=== PATIENT | male | born 1970 ===

== ENCOUNTER 2018-06-25 10:49 | Emergency (ER) | payer SELFPAY ==
[2018-06-25 10:51] VITALS: BMI 26.6
[2018-06-25 10:52] VITALS: O2SAT 98
--- NOTE | 2018-06-25 11:49 | ED PDOC ---
HPI: Back Time Seen by Provider: 06/25/18 11:24 Chief Complaint (Nursing): Back Pain History Per: Patient Onset/Duration Of Symptoms: Days (2) Current Symptoms Are (Timing): Still Present Quality Of Discomfort: Aching Severity: Moderate Previous Symptoms: Back Pain Exacerbating Factor(s): Movement Additional Complaint(s): Low back pain R>L radiating to back of right leg x 2 days. Occurred after bending down to tie his shoes. Denies weakness or parasthesias. denies urinary sxs or fever. Past Medical History Vital Signs: Last Vital Signs Temp 98.5 F 06/25/18 10:51 Pulse 63 06/25/18 10:51 Resp 18 06/25/18 10:51 BP 131/79 06/25/18 10:51 Pulse Ox 98 06/25/18 10:51 - Medical History PMH: No Chronic Diseases - Family History Family History: States: Unknown Family Hx - Home Medications Home Medications: Ambulatory Orders Medication Instructions Recorded Cyclobenzaprine [Cyclobenzaprine 10 mg PO TID #12 tab 06/25/18 HCl] Naproxen [Naprosyn] 500 mg PO Q12H #20 tab 06/25/18 - Allergies Allergies/Adverse Reactions: Allergies Allergy/AdvReac Type Severity Reaction Status Date / Time No Known Allergies Allergy Verified 06/25/18 11:18 Review of Systems Constitutional: Negative for: Fever Genitourinary Male: Negative for: Dysuria, Frequency Musculoskeletal: Positive for: Back Pain Neurological: Negative for: Weakness, Numbness Physical Exam - Physical Exam Appears: Positive for: Non-toxic, Uncomfortable Skin: Positive for: Normal Color, Warm, DRY Back: Positive for: Normal Inspection, Vertebral Tenderness, Muscle Spasm (Paralumbar spasm and tenderness bilat) Extremity: Positive for: Normal ROM Neurologic/Psych: Positive for: Alert, Oriented. Negative for: Motor/Sensory Deficits - ECG O2 Sat by Pulse Oximetry: 98 - Progress Re-evaluation Time: 13:34 Condition: Improved Disposition - Clinical Impression Clinical Impression: Back strain - Patient ED Disposition Is Patient to be Admitted: No - Disposition Referrals: Dmitry Ryan MD [Staff Provider] - Disposition: Routine/Home Disposition Time: 13:34 Condition: FAIR Prescriptions: Cyclobenzaprine [Cyclobenzaprine HCl] 10 mg PO TID #12 tab Naproxen [Naprosyn] 500 mg PO Q12H #20 tab Instructions: Low Back Pain in Adults Forms: [facility] (Khmer), [facility] ED School/Work Excuse Print Language: [email or web address]
[2018-06-25 13:57] VITALS: BP 129/76; PULSE 78; RESP 19; TEMP 97.5
== END 2018-06-25 13:57 | disposition home or self-care (01) ==
LOC: H.ER 10:49
DX: S39.012A Strain of muscle, fascia and tendon of lower back, initial encounter (principal)
CPT/HCPCS: 96372; 99282; J1885